=== PATIENT | female | born 1945 | race Caucasian/White ===

== ENCOUNTER 2023-06-08 10:45 | Outpatient (RCR) | payer MEDICARE, SELFPAY | END 2023-07-20 12:45 | disposition home or self-care (01) | LOC: ANHDMC 10:45 | PROVIDERS: Visit Provider Internal Medicine Endocrinology, Diabetes & Metabolism | DX: E11.65 Type 2 diabetes mellitus with hyperglycemia (principal); Z71.89 Other specified counseling | CPT/HCPCS: G0108 ==